=== PATIENT | male | born 1985 | race Caucasian/White ===

== ENCOUNTER 2016-11-21 18:13 | Inpatient (IN) | payer BC ==
[2016-11-21] MEDS ORDERED: KETOROLAC 30 MG/ML 1 ML VIAL IVP STA (19:04)
[2016-11-21] MEDS ORDERED: SODIUM CHLORIDE 0.9% 1,000 ML IV ONE (19:04)
[2016-11-21 19:37] LABS: Basophils % (A) 1 %; CH 31.4; CHCM 35.6; Eosinophils # (A) 0.1 k/uL (0-0.7); Eosinophils % (A) 1 %; HCT 45.2 % (39.0-53.0); HDW 2.66; HGB 15.6 gm/dL (13.0-17.5); Luc # (Auto) 0.16; Luc % (Auto) 2; Lymphocytes # (A) 1.9 k/uL (1.0-4.8); Lymphocytes % (A) 27 %; MCH 30.6 pg (25.0-35.0); MCHC 34.6 g/dL (31.0-37.0); MCV 88.6 fL (80.0-100.0); Mean Platelet Volume 8.1; Monocytes # (A) 0.4 k/uL (0-1.0); Monocytes % (A) 6 %; Neutrophils # (A) 4.5 k/uL (1.3-7.7); Neutrophils % (A) 63 %; RDW 13.2 % (11.5-15.5); WBC 7.1 k/uL (3.8-10.6); WBC (Perox) 7.04
[2016-11-21 19:50] LABS: ALT 39 U/L (21-72); AST 21 U/L (17-59); Alkaline Phosphatase 77 U/L (38-126); Anion Gap 16 mmol/L; Blood Urea Nitrogen 15 mg/dL (9-20); C Reactive Protein 22.8 mg/L (<10.0); Calcium 9.9 mg/dL (8.4-10.2); Carbon Dioxide 24 mmol/L (22-30); Chloride 103 mmol/L (98-107); Glucose 98 mg/dL (74-99); Non-African American GFR(MDRD) >60 (>60 ml/min/1.73 sqM); Potassium 4.2 mmol/L (3.5-5.1); Sodium 143 mmol/L (137-145); Total Bilirubin 0.6 mg/dL (0.2-1.3); Total Protein 7.6 g/dL (6.3-8.2)
[2016-11-21 20:25] LABS: Erythrocyte Sedimentation Rate 5 mm/hr (0-15)
[2016-11-21] MEDS ORDERED: RX INFO: IV CONTRAST WAS GIVEN 1 EACH MISC MISCELLANE PRN (20:38)
--- NOTE | 2016-11-21 21:21 | CT ---
EXAMINATION TYPE: CT abdomen pelvis w con DATE OF EXAM: 11/21/2016 COMPARISON: NONE HISTORY: RLQ pain. CT DLP: 512.8 mGycm Automated exposure control for dose reduction was used. TECHNIQUE: Helical acquisition of images was performed from the lung bases through the pelvis. CONTRAST: Performed without Oral Contrast and with IV Contrast, patient injected with 100 mL of Omnipaque 300. FINDINGS: The lung bases are clear. There is no pleural effusion. Liver spleen pancreas gallbladder appear normal. Bile ducts are not dilated. There is no adrenal mass . Kidneys have normal size and contour. There is no hydronephrosis. There is no retroperitoneal adeno dane. There is no ascites. There is mild fat stranding around the appendix. Appendix is borderline t hickened. Appendix measures 9 mm in diameter. Bladder distends smoothly. There is some retained fecal material in the rectum. I see no intestinal w all thickening. Lumbar spine is intact. IMPRESSION: THERE IS THICKENING OF THE APPENDIX CONSISTENT WITH ACUTE APPENDICITIS. NO ABSCESS.
[2016-11-21] MEDS ORDERED: LACTATED RINGERS 1,000 ML IV ONE (21:54)
[2016-11-21] MEDS ORDERED: ONDANSETRON 4 MG/2 ML VIAL IVP PRN ×2 (21:55→22:21)
[2016-11-21] MEDS ORDERED: MORPHINE SULFATE 4 MG/ML SYRINGE IVP PRN (21:57)
[2016-11-21] MEDS ORDERED: KETOROLAC 30 MG/ML 1 ML VIAL IVP PRN (22:21)
[2016-11-21] MEDS ORDERED: MORPHINE SULFATE 4 MG/ML SYRINGE IV PRN (22:21)
[2016-11-21] MEDS ORDERED: NALOXONE 0.4 MG/ML 1 ML VIAL IV PRN (22:21)
[2016-11-21] MEDS: PIPERACILLIN-TAZOBACTAM 3.375 GM in DEXTROSE/WATER 1 50ML.BAG IVPB SCH (22:23)
--- NOTE | 2016-11-21 22:25 | ED ---
Abdominal Pain HPI - General Chief Complaint: Abdominal Pain Stated Complaint: abdominal pain Source: patient Mode of arrival: ambulatory Limitations: no limitations - History of Present Illness Initial Comments: 31-year-old male presented for evaluation of abdominal pain. He states yesterday he had generalized uneasy feeling in his abdomen however after dinner it started to localize to the right lower quadrant. During this time he is continued to have worsening pain that he states is worse when he is walking around and when he palpates it. He states there is some associated nausea however no other associated symptoms. His pain before and denies any preceding trauma. He further denies any dysuria, diarrhea, constipation, fevers, chills, chest pain, shortness of breath. Pain does not radiate anywhere and he describes it as a dull pain. He denies any previous abdominal surgeries. - Related Data Home Medications Medication Instructions Recorded Confirmed Multivitamin [Men's Multi-Vitamin] 1 tab PO DAILY 11/21/16 11/21/16 Allergies Allergy/AdvReac Type Severity Reaction Status Date / Time No Known Allergies Allergy Verified 11/21/16 18:51 Review of Systems ROS Statement: Those systems with pertinent positive or pertinent negative responses have been documented in the HPI. ROS Other: All systems not noted in ROS Statement are negative. Constitutional: Denies: fever, chills Eyes: Denies: eye pain, eye discharge ENT: Denies: ear pain, throat pain Respiratory: Denies: cough, dyspnea Cardiovascular: Denies: chest pain, palpitations Endocrine: Denies: fatigue, polydipsia, polyuria Gastrointestinal: Reports: abdominal pain, nausea. Denies: vomiting, diarrhea, constipation, hematemesis, melena, hematochezia Genitourinary: Denies: urgency, dysuria Musculoskeletal: Denies: back pain, arthralgia Skin: Denies: rash, lesions Neurological: Denies: headache, weakness Psychiatric: Denies: anxiety, depression Hematological/Lymphatic: Denies: easy bleeding, easy bruising Past Medical History Past Medical History: No Reported History History of Any Multi-Drug Resistant Organisms: None Reported Additional Past Surgical History / Comment(s): wisdom teeth Past Psychological History: No Psychological Hx Reported Smoking Status: Never smoker Past Alcohol Use History: Occasional Past Drug Use History: None Reported General Exam Limitations: no limitations General appearance: alert, in no apparent distress Head exam: Present: atraumatic, normocephalic, normal inspection Eye exam: Present: normal appearance, PERRL, EOMI. Absent: scleral icterus, conjunctival injection, periorbital swelling ENT exam: Present: normal exam, mucous membranes moist Neck exam: Present: normal inspection. Absent: tenderness, meningismus, lymphadenopathy Respiratory exam: Present: normal lung sounds bilaterally. Absent: respiratory distress, wheezes, rales, rhonchi, stridor Cardiovascular Exam: Present: regular rate, normal rhythm, normal heart sounds. Absent: systolic murmur, diastolic murmur, rubs, gallop, clicks GI/Abdominal exam: Present: soft, tenderness (RLQ abdominal pain), normal bowel sounds. Absent: distended, guarding, rebound, rigid Course Vital Signs 11/21/16 11/21/16 11/21/16 18:16 21:46 22:51 Temperature 98.8 F 97.9 F Pulse Rate 94 88 68 Respiratory 20 16 16 Rate Blood Pressure 163/93 147/91 137/74 O2 Sat by Pulse 99 100 Oximetry Medical Decision Making - Medical Decision Making 31-year-old male presenting for evaluation of generalized abdominal pain that has localized to the right lower quadrant. Pain started yesterday morning and has progressively worsened. On physical examination he has no peritoneal signs of guarding, rigidity, rebound. However he does have McBurney' s point tenderness. Labs revealed an elevated CRP however there were no other significant abnormalities. Through discussion with the patient and his fiance it was determined that we would obtain a CT abdomen and pelvis which revealed acute appendicitis. Dr. Jack (gen surg) was updated on the status of the patient and accepted admission. Fluids continued and IV ABX started. Admission order placed and bed request submitted. - Lab Data Result diagrams: 11/21/16 19:24 11/21/16 19:24 Lab Results 11/21/16 11/21/16 11/21/16 Range/Units 19:24 19:24 19:24 WBC 7.1 (3.8-10.6) k/uL RBC 5.10 (4.30-5.90) m/uL Hgb 15.6 (13.0-17.5) gm/dL Hct 45.2 (39.0-53.0) % MCV 88.6 (80.0-100.0) fL MCH 30.6 (25.0-35.0) pg MCHC 34.6 (31.0-37.0) g/dL RDW 13.2 (11.5-15.5) % Plt Count 257 (150-450) k/uL Neutrophils % 63 % Lymphocytes % 27 % Monocytes % 6 % Eosinophils % 1 % Basophils % 1 % Neutrophils # 4.5 (1.3-7.7) k/uL Lymphocytes # 1.9 (1.0-4.8) k/uL Monocytes # 0.4 (0-1.0) k/uL Eosinophils # 0.1 (0-0.7) k/uL Basophils # 0.0 (0-0.2) k/uL ESR 5 (0-15) mm/hr Sodium 143 (137-145) mmol/L Potassium 4.2 (3.5-5.1) mmol/L Chloride 103 (98-107) mmol/L Carbon Dioxide 24 (22-30) mmol/L Anion Gap 16 mmol/L BUN 15 (9-20) mg/dL Creatinine 1.00 (0.66-1.25) mg/dL Est GFR (MDRD) Af Amer >60 (>60 ml/min/1.73 sqM) Est GFR (MDRD) Non-Af >60 (>60 ml/min/1.73 sqM) Glucose 98 (74-99) mg/dL Plasma Lactic Acid Ed 1.4 (0.7-2.0) mmol/L Calcium 9.9 (8.4-10.2) mg/dL Total Bilirubin 0.6 (0.2-1.3) mg/dL AST 21 (17-59) U/L ALT 39 (21-72) U/L Alkaline Phosphatase 77 (38-126) U/L C-Reactive Protein 22.8 H (<10.0) mg/L Total Protein 7.6 (6.3-8.2) g/dL Albumin 5.0 (3.5-5.0) g/dL Lipase 70 (23-300) U/L Disposition Clinical Impression: Appendicitis Disposition: ADMITTED IP TO THIS HOSP Referrals: Lewis Caldera MD [Primary Care Provider] - 1-2 days Decision to Admit Reason: Admit from EC Decision Date: 11/21/16 Decision Time: 22:25
[2016-11-21 23:32] VITALS: BMI 24.4
[2016-11-22] MEDS: SODIUM CHLORIDE 0.9% 1,000 ML IV SCH ×2 (01:51→11:18)
[2016-11-22] MEDS: HEPARIN SODIUM,PORCINE 5,000 UNIT/ML 1 ML VIAL SQ SCH ×2 (05:38→11:15)
[2016-11-22] MEDS: PIPERACILLIN-TAZOBACTAM 3.375 GM in DEXTROSE/WATER 1 50ML.BAG IVPB SCH ×2 (06:13→13:59)
[2016-11-22] MEDS ORDERED: IV FLUID CONTINUATION 1,000 ML IV ONE ×2 (07:31)
[2016-11-22 07:58] LABS: Basophils % (A) 1 %; CH 31.4; CHCM 34.9; Eosinophils # (A) 0.1 k/uL (0-0.7); Eosinophils % (A) 1 %; HCT 43.5 % (39.0-53.0); HDW 2.65; HGB 14.7 gm/dL (13.0-17.5); Luc # (Auto) 0.19; Luc % (Auto) 3; Lymphocytes % (A) 34 %; MCH 30.6 pg (25.0-35.0); MCHC 33.8 g/dL (31.0-37.0); MCV 90.5 fL (80.0-100.0); Mean Platelet Volume 7.8; Monocytes # (A) 0.4 k/uL (0-1.0); Monocytes % (A) 7 %; Neutrophils # (A) 3.2 k/uL (1.3-7.7); Neutrophils % (A) 54 %; RBC 4.81 m/uL (4.30-5.90); RDW 13.7 % (11.5-15.5); WBC 5.8 k/uL (3.8-10.6); WBC (Perox) 6.08
--- NOTE | 2016-11-22 08:00 | P.GSHP ---
History of Present Illness H&P Date: 11/22/16 Chief Complaint: Acute appendicitis 31 years old male presents with right lower quadrant pain of one-day duration. Pain is constant, no radiation or shifting. No nausea or vomiting. No fever, chills or rigors. - Review of Systems Comment: Constitutional: Denies fever, weight loss or loss of appetite HEENT: No difficulty in vision or hearing. Denies dysphagia. Cardiovascular: Denies chest pain, palpitations, dizziness, shortness of breath. Respiratory: No cough or shortness of breath Gastrointestinal: No recent change in bowel habits, no abdominal pain, no nausea or vomiting. D Integumentary: No skin ulcers or rash Genitourinary: No urinary incontinence, hematuria or dysuria Neurologic: No seizures, denies weakness in upper or lower extremities Musculoskeletal: No arthritis or back pain Psychiatry: No history of depression, no suicidal ideation, no anxiety or psychosis Past Medical History Past Medical History: No Reported History History of Any Multi-Drug Resistant Organisms: None Reported Additional Past Surgical History / Comment(s): wisdom teeth Past Psychological History: No Psychological Hx Reported Smoking Status: Never smoker Past Alcohol Use History: Occasional Past Drug Use History: None Reported Medications and Allergies Home Medications Medication Instructions Recorded Confirmed Type Multivitamin [Men's Multi-Vitamin] 1 tab PO DAILY 11/21/16 11/21/16 History Allergies Allergy/AdvReac Type Severity Reaction Status Date / Time No Known Allergies Allergy Verified 11/21/16 18:51 Surgical - Exam Vital Signs Temp Pulse Resp BP Pulse Ox 98.8 F 94 20 163/93 99 11/21/16 18:16 11/21/16 18:16 11/21/16 18:16 11/21/16 18:16 11/21/16 18:16 General: Patient is alert and oriented to time, place and person and cooperative with exam. He is not in acute distress. HEENT: No pallor, no icterus, no thyroid enlargement, no cervical lymphadenopathy. Chest: Bilateral equal breath sounds present. No wheezes, no crackles. Cardiovascular: Regular rate and rhythm. Abdomen: Soft, tenderness localized to right lower quadrant. Localized peritonitis without rebound or guarding Integumentary: No active ulcers or discharge. Neurologic: Cranial nerves II-XII intact. Strength upper and lower extremities 5/5. No focal neurologic deficits. Gait is normal. Psychiatric: No anxiety or psychosis. No suicidal thoughts. Results - Labs 11/21/16 19:24 11/21/16 19:24 Abnormal Lab Results - Last 24 Hours (Table) 11/21/16 Range/Units 19:24 C-Reactive Protein 22.8 H (<10.0) mg/L Diabetes panel 11/21/16 Range/Units 19:24 Sodium 143 (137-145) mmol/L Potassium 4.2 (3.5-5.1) mmol/L Chloride 103 (98-107) mmol/L Carbon Dioxide 24 (22-30) mmol/L BUN 15 (9-20) mg/dL Creatinine 1.00 (0.66-1.25) mg/dL Glucose 98 (74-99) mg/dL Calcium 9.9 (8.4-10.2) mg/dL AST 21 (17-59) U/L ALT 39 (21-72) U/L Alkaline Phosphatase 77 (38-126) U/L Total Protein 7.6 (6.3-8.2) g/dL Albumin 5.0 (3.5-5.0) g/dL Calcium panel 11/21/16 Range/Units 19:24 Calcium 9.9 (8.4-10.2) mg/dL Albumin 5.0 (3.5-5.0) g/dL Pituitary panel 11/21/16 Range/Units 19:24 Sodium 143 (137-145) mmol/L Potassium 4.2 (3.5-5.1) mmol/L Chloride 103 (98-107) mmol/L Carbon Dioxide 24 (22-30) mmol/L BUN 15 (9-20) mg/dL Creatinine 1.00 (0.66-1.25) mg/dL Glucose 98 (74-99) mg/dL Calcium 9.9 (8.4-10.2) mg/dL Adrenal panel 11/21/16 Range/Units 19:24 Sodium 143 (137-145) mmol/L Potassium 4.2 (3.5-5.1) mmol/L Chloride 103 (98-107) mmol/L Carbon Dioxide 24 (22-30) mmol/L BUN 15 (9-20) mg/dL Creatinine 1.00 (0.66-1.25) mg/dL Glucose 98 (74-99) mg/dL Calcium 9.9 (8.4-10.2) mg/dL Total Bilirubin 0.6 (0.2-1.3) mg/dL AST 21 (17-59) U/L ALT 39 (21-72) U/L Alkaline Phosphatase 77 (38-126) U/L Total Protein 7.6 (6.3-8.2) g/dL Albumin 5.0 (3.5-5.0) g/dL - Imaging CT scan - abdomen: image reviewed (CT scan of the abdomen and pelvis reviewed. Thickened appendix suggestive of acute appendicitis. No abscess) Assessment and Plan (1) Appendicitis Status: Acute Plan: 1. Acute appendicitis possible open 2. Informed consent obtained and patient elected to undergo laparoscopic appendectomy possible open and all indicated procedures 3. Heparin subcutaneous 5000 Units SQ 4. Bilateral SCDs 5. Zosyn 3.725 mg IV piggyback every 8 hours hrly
[2016-11-22 08:07] LABS: Anion Gap 11 mmol/L; Blood Urea Nitrogen 11 mg/dL (9-20); Calcium 8.9 mg/dL (8.4-10.2); Carbon Dioxide 24 mmol/L (22-30); Chloride 108 mmol/L (98-107); Glucose 81 mg/dL (74-99); Magnesium 1.9 mg/dL (1.6-2.3); Non-African American GFR(MDRD) >60 (>60 ml/min/1.73 sqM); Phosphorous 4.2 mg/dL (2.5-4.5); Potassium 4.1 mmol/L (3.5-5.1); Sodium 143 mmol/L (137-145)
[2016-11-22] MEDS ORDERED: HYDROmorphone (PF) 1 MG/ML ONE (08:52)
[2016-11-22] MEDS ORDERED: KETOROLAC 30 MG/ML 1 ML VIAL ONE (08:52)
[2016-11-22] MEDS ORDERED: MIDAZOLAM 2 MG/2 ML VIAL ONE (08:52)
[2016-11-22] MEDS ORDERED: GLYCOPYRROLATE 0.2 MG/ML 2 ML VIAL ONE (08:52)
[2016-11-22] MEDS ORDERED: LIDOCAINE 1% INJ 10MG/ML (20 ML MDV) ONE (08:52)
[2016-11-22] MEDS ORDERED: PROPOFOL 10 MG/ML 20 ML VIAL IV ONE (08:52)
[2016-11-22] MEDS ORDERED: HEPARIN SODIUM,PORCINE 5,000 UNIT/ML 1 ML VIAL ONE (08:52)
[2016-11-22] MEDS ORDERED: SUCCINYLCHOLINE CHLORIDE 100 MG/5 ML SYR IV ONE (08:52)
[2016-11-22] MEDS ORDERED: ROCURONIUM BROMIDE 10 MG/ML 10 ML VIAL IV ONE (08:52)
[2016-11-22] MEDS ORDERED: NEOSTIGMINE 1 MG/ML 10 ML VIAL ONE (08:52)
[2016-11-22] MEDS ORDERED: fentaNYL (PF) 50 MCG/ML 2 ML AMP ONE (08:52)
[2016-11-22] MEDS ORDERED: BUPIVACAIN-EPI 0.5%-1:200,000 30 ML VIAL SQ ONE (09:16)
[2016-11-22] MEDS ORDERED: LACTATED RINGERS 1,000 ML IV ONE (09:17)
--- NOTE | 2016-11-22 12:17 | P.OP ---
Date of Procedure: 11/22/16 Preoperative Diagnosis: Acute appendicitis Postoperative Diagnosis: Same Procedure(s) Performed: Laparoscopic appendectomy Implants: Anesthesia: DEANNA local Surgeon: Kelsie Jack Pathology: other Condition: stable Disposition: PACU Indications for Procedure: 31 years old male presents with acute appendicitis. Informed consent obtained and he elected to undergo lap appendectomy possible open Operative Findings: Description of Procedure: The patient was brought to the operating room and placed in supine position with left arm tucked and a footboard was placed. General anesthesia with endotracheal intubation was performed as per anesthesia team. A Castillo catheter was inserted under sterile aseptic precautions. Chlorhexidine was used to prep the abdomen followed by application of sterile drapes. A timeout was performed to verify correct patient and correct procedure. Patient was confirmed to receive perioperative IV antibiotics, subcutaneous heparin for VTE prophylaxis and bilateral SCDs were placed. A 5 mm skin incision was made in the left anterior axillary line and a Veress needle was inserted into the peritoneal cavity and CO2 insufflated to a pressure of 15 mmHg. A 5 mm Optiview trocar was loaded on a 5 mm 30 laparoscope and peritoneal cavity was entered under direct vision. An additional 5 mm trocar was placed in the suprapubic location in midline and a 12 mm trocar in the infraumbilical location. Patient was placed in Trendelenburg with right side up. The appendix was identified. It appeared edematous and indurated. A suction irrigation device was used to gently dissecting appendix from the surrounding tissue. All the fibrinous exudates were removed. A window was made in the mesoappendix close to the cecal base using a [place] dissector. Laparoscopic Ligasure was used to divide the mesoappendix. No bleeding noted from the mesoappendiceal stump. The appendix was divided at its base, at the confluence of three tenia using Ethicon stapler 45 blue load. The staple line was intact without evidence of bleeding. The appendix was retrieved through the infraumbilical port site. All the trocar sites were examined and no evidence of bleeding. Excess fluid was suctioned out. The 12 mm trocar site was closed using three transfascial sutures of 0 Vicryl which were placed using a Arsh Torri device. Local anesthetic was infiltrated along all the ports sites. The sponge, instrument and needle count were correct x2. CO2 gas was evacuated and trocars were removed. 4-0 Monocryl was used to close the skin incisions followed by Dermabond skin glue. Castillo catheter was discontinued. Patient tolerated the procedure well and was taken to post anesthesia care unit in stable condition.
--- NOTE | 2016-11-22 12:19 | P.DS ---
Providers Date of admission: 11/21/16 22:21 Expected date of discharge: 11/22/16 Attending physician: Kelsie Jack Primary care physician: Lewis Caldera - Discharge Diagnosis(es) (1) Appendicitis Current Visit: Yes Status: Acute Hospital Course: 31 years old male status post laparoscopic appendectomy. Tolerated clear liquid diet. Pain is fairly controlled. No nausea or vomiting. Procedures: Laparoscopic appendectomy Patient Condition at Discharge: Good Plan - Discharge Summary New Discharge Prescriptions: New Docusate [Colace] 100 mg PO BID #20 capsule Hydrocodone/Acetaminophen [[place] 5-325] 1 each PO Q6HR PRN #10 tab PRN Reason: Pain HYDROcodone/APAP 5-325MG [[place] 5-325] 1 tab PO Q4HR PRN #10 tab PRN Reason: Pain No Action Multivitamin [Men's Multi-Vitamin] 1 tab PO DAILY Discharge Medication List Multivitamin [Men's Multi-Vitamin] 1 tab PO DAILY 11/21/16 [History] Docusate [Colace] 100 mg PO BID #20 capsule 11/22/16 [Rx] HYDROcodone/APAP 5-325MG [[place] 5-325] 1 tab PO Q4HR PRN #10 tab 11/22/16 [Rx] Hydrocodone/Acetaminophen [[place] 5-325] 1 each PO Q6HR PRN #10 tab 11/22/16 [Rx] Follow up Appointment(s)/Referral(s): Kelsie Jack MD [STAFF PHYSICIAN] - 12/03/16 Lewis Caldera MD [Primary Care Provider] - 1-2 days Activity/Diet/Wound Care/Special Instructions: OK to shower . No soaking bath. No heavy lifting more than 10 lbs for 6 weeks post surgery. No driving while taking narcotics for pain. May use ice packs for local pain relief Take Motrin 600 mg po TID after meals if pain is not controlled Use incentive spireometry 10 times an hour while awake Discharge Disposition: HOME SELF-CARE
[2016-11-22 15:25] VITALS: BP 132/70; PULSE 88; RESP 17; TEMP 98.2
== END 2016-11-22 17:33 | disposition home or self-care (01) | DRG 343 ==
LOC: EC 18:13 → 3SUR 22:21
PROVIDERS: ADMIT Surgery; ATTEND Surgery
PROC: 0DTJ4ZZ Resection of Appendix, Percutaneous Endoscopic Approach (ICD-10-PCS; principal; 2016-11-22 10:15)
DX: K35.80 Unspecified acute appendicitis (principal); R79.82 Elevated C-reactive protein (CRP)
CPT/HCPCS: 36415; 74177; 80048; 80053; 83605; 83690; 83735; 84100; 85025; 85652; 86140; 88304; 96361; 96365; 96375; 99285